=== PATIENT | male | born 1980 ===

== ENCOUNTER 2019-01-22 16:11 | Outpatient (REF) | payer MEDICAID, SELFPAY ==
[2019-01-22 21:49] LABS: Calculated LDL 125 mg/dL; Cholesterol 209 mg/dL (50-200); HDL Cholesterol 76 mg/dL (40-60); Triglyceride 42 mg/dL (30-150)
[2019-01-25 10:32] LABS: Hepatitis C Ab w Rflx HCV PCR Negative (NEGAT)
[2019-01-25 11:26] LABS: HIV-1/2 Ag & Ab Screen Negative (NEGAT)
[2019-01-25 11:54] LABS: Syphilis Serology (RPR) Negative (Negative)
== END 2019-01-22 16:31 ==
LOC: NCHCN 16:11
PROVIDERS: PCP Internal Medicine; Visit Provider Internal Medicine
DX: F17.200 Nicotine dependence, unspecified, uncomplicated (principal); Z86.59 Personal history of other mental and behavioral disorders; Z11.3 Encounter for screening for infections with a predominantly sexual mode of transmission; Z11.4 Encounter for screening for human immunodeficiency virus [HIV]; Z11.59 Encounter for screening for other viral diseases
CPT/HCPCS: 80061; 83721; 86803; 87389; 86592

== ENCOUNTER 2019-01-27 16:16 | Outpatient (REF) | payer MEDICAID, SELFPAY ==
[2019-01-29 15:03] LABS: Chlamydia Result Negative; GC Result Negative; Specimen Description URINE
== END 2019-01-27 16:36 ==
LOC: NCHCN 16:16
PROVIDERS: PCP Internal Medicine; Visit Provider Internal Medicine
DX: Z11.3 Encounter for screening for infections with a predominantly sexual mode of transmission (principal); Z86.59 Personal history of other mental and behavioral disorders
CPT/HCPCS: 87491; 87591

== ENCOUNTER 2020-05-08 13:23 | Outpatient (REF) | payer MEDICAID, SELFPAY ==
[2020-05-12 13:17] LABS: SARS-CoV-2 RNA Undetected (Undetected); SARS-CoV-2 Specimen Source Nasal
== END 2020-05-08 13:43 ==
LOC: NCHCN 13:23
PROVIDERS: PCP Internal Medicine; Visit Provider Internal Medicine
DX: Z20.828 Contact with and (suspected) exposure to other viral communicable diseases (principal)
CPT/HCPCS: U0003